=== PATIENT | male | born 1955 | race African-American/Black ===

== ENCOUNTER 2017-10-31 09:18 | Outpatient (CLI) | payer BC ==
[~2017-10-31 09:18] MED LIST: Iopamidol 370 76% 100 ML VIAL ONE
[2017-10-31 10:21] LABS: Estimated GFR-MDRD - POC Greater than 90
--- NOTE | 2017-10-31 11:42 | CT ---
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 Evaluation for metastatic disease. COMPARISON: No prior imaging comparisons are available. FINDINGS: There is granulomatous calcification at the imaged lower chest. Diffuse vascular calcification is pr esent. There are cysts of the right kidney and a small hypodensity of the medial aspect of the splee n, which may relate to a cyst, although is too small to definitively characterize. There is no adren al mass, bilaterally. The pancreas is unremarkable. No focal hepatic lesion. There is wall promine nce of the sigmoid colon with mild pericolonic fat stranding of the pelvis. Colonic diverticular are seen. There is a normal-caliber appendix visualized. No evidence of pelvic adenopathy. No evidenc e of acute osseous abnormality. There is indurated dermis of the cephalad aspect of the gluteal clef t with underlying spiculated density of the subcutaneous fat. IMPRESSION: 1. Abnormal wall thickening of the rectosigmoid colon with mild surrounding fat stranding. This is suspicious for neoplasm and should be further evaluated with direct visualization via colonoscopy. T here are diverticula of the colon, although this does not demonstrate a typical appearance for acute diverticulitis. 2. Abnormal induration and spiculated density of the dermal layer of the superior aspect of the glut eal cleft. This may relate to the patient's history of squamous cell cancer and should be correlated with physical exam. Findings telephoned to patient's physician, Jamie Kumar, at the time of interpretation, 1115 hours 10/31/17. CODE CR POS: RASHI
== END 2017-10-31 09:19 | disposition home or self-care (01) ==
LOC: SCSCT 09:18
PROVIDERS: ATTEND Radiology Radiation Oncology
DX: C49.5 Malignant neoplasm of connective and soft tissue of pelvis (principal); K63.89 Other specified diseases of intestine; K57.30 Diverticulosis of large intestine without perforation or abscess without bleeding
CPT/HCPCS: 74178; 82565